=== PATIENT | female | born 1985 | race Caucasian/White ===

== ENCOUNTER 2019-11-13 13:31 | Emergency (ER) | payer MEDICAID, OTHER ==
[~2019-11-13] VITALS: Ht 162.6 cm; Wt 57.0 kg
[2019-11-13] MEDS ORDERED: cyclobenzaprine 10mg tablet PO ONE (14:30)
[2019-11-13] MEDS ORDERED: normal saline 1000ml 1,000 ML IV ONE (14:30)
[2019-11-13] MEDS ORDERED: ketorolac tromethamine 15mg/ml inj. IV ONE (14:40)
[2019-11-13] MEDS: morphine 4 MG/ML inj SYRINge IV ONE ×2 (14:49→14:52)
[2019-11-13] MEDS ORDERED: ondansetron/PF 4mg/2ml inj IV ONE (15:20)
[2019-11-13] MEDS ORDERED: morphine 4 MG/ML inj SYRINge IV ONE (15:20)
[2019-11-13 15:23] LABS: BASOPHILS # (AUTO) 0.1 X10'3 (0-0.2); BASOPHILS % (AUTO) 1.1 % (0-1); EOSINOPHILS # (AUTO) 0.1 X10'3 (0-0.9); HEMATOCRIT 35.5 % (35.0-45.0); HEMOGLOBIN 11.5 g/dl (12.0-16.0); LYMPHOCYTES # (AUTO) 1.3 X10'3 (1.1-4.8); LYMPHOCYTES % (AUTO) 20.9 % (21-51); MEAN CORPUSCULAR HEMOGLOBIN 26.7 PG (27.0-31.0); MEAN CORPUSCULAR HGB CONC 32.5 g/dL (33.0-36.5); MEAN CORPUSCULAR VOLUME 82.1 FL (78-98); MEAN PLATELET VOLUME 7.5 FL (7.4-10.4); MONOCYTES # (AUTO) 0.8 X10'3 (0-0.9); MONOCYTES % (AUTO) 13.3 % (2-12); NEUTROPHILS % (AUTO) 63.7 % (42-75); PLATELET COUNT 253 X10'3 (140-440); RED BLOOD COUNT 4.33 X10'6 (4.20-5.60); RED CELL DISTRIBUTION WIDTH 16.2 % (11.5-14.5); WHITE BLOOD COUNT 6.3 X10'3 (4.5-11.0)
[2019-11-13 15:30] VITALS: BP 110/68
[2019-11-13 15:46] LABS: ALANINE AMINOTRANSFERASE 19 U/L (12-78); ALBUMIN 2.8 G/DL (3.4-5.0); ALBUMIN/GLOBULIN RATIO 0.8 (1.1-1.5); ALKALINE PHOSPHATASE 68 IU/L (46-116); ANION GAP 8 (8-16); ASPARTATE AMINO TRANSFERASE 16 U/L (10-37); BILIRUBIN,TOTAL 0.2 MG/DL (0.1-1.0); BLOOD UREA NITROGEN 6 MG/DL (7-18); BUN/CREATININE RATIO 10.7 (6.6-38.0); CALCIUM 7.7 MG/DL (8.5-10.1); CHLORIDE 107 MMOL/L (99-107); CREATININE 0.56 MG/DL (0.40-0.90); GLUCOSE 114 MG/DL (70-104); POTASSIUM 3.6 MMOL/L (3.5-5.1); SODIUM 138 MMOL/L (135-145); TOTAL CARBON DIOXIDE 23.2 MMOL/L (24-32); TOTAL PROTEIN 6.2 G/DL (6.4-8.2); eGFR > 90 ML/MIN
[2019-11-13] MEDS ORDERED: CYCL-1 PO (15:50)
== END 2019-11-13 17:29 | disposition home or self-care (01) ==
LOC: ER 13:32
DX: R68.84 Jaw pain (principal); R11.0 Nausea; F17.200 Nicotine dependence, unspecified, uncomplicated; F15.90 Other stimulant use, unspecified, uncomplicated; Z79.899 Other long term (current) drug therapy
CPT/HCPCS: 36415; 71045; 80053; 83735; 83880; 85025; 93005; 96374; 96375; 99285; J1885; J2270; J2405; J7030

== ENCOUNTER 2020-05-02 09:33 | Emergency (ER) | payer SELFPAY ==
[~2020-05-02] VITALS: Ht 152.4 cm; Wt 60.0 kg
[~2020-05-02 09:33] MED LIST: CYCL-1 PO
[2020-05-02 09:35] VITALS: BP 98/68
--- NOTE | 2020-05-02 09:49 | NUR ---
WENT TO CALL PT INFORMED BY SCREENER THAT PT GOT IN CAR AND LEFT
== END 2020-05-02 10:10 | disposition left against medical advice (07) ==
LOC: ER 09:34
DX: R21 Rash and other nonspecific skin eruption (principal); Z53.21 Procedure and treatment not carried out due to patient leaving prior to being seen by health care provider

== ENCOUNTER 2020-05-10 23:38 | Emergency (ER) | payer SELFPAY ==
[~2020-05-10] VITALS: Ht 152.4 cm; Wt 60.0 kg
[2020-05-11] MEDS ORDERED: methylPREDNISolone sod succ 125mg/2ml vial IV ONE (00:10)
[2020-05-11] MEDS ORDERED: ipratropium/albuterol 3ml nebule NEB ONE (00:10)
--- NOTE | 2020-05-11 00:41 | NUR ---
DR BETANCOURT AT BEDSIDE. KAUR RECEIVED FOR BENEDRYL 50 MG PO X1 NOW.
[2020-05-11] MEDS ORDERED: diphenhydrAMINE 25mg capsule PO ONE (00:45)
[2020-05-11] MEDS ORDERED: HYDR-3686 PO (01:05)
[2020-05-11] MEDS ORDERED: fluconazole 150mg tablet PO ONE (01:05)
[2020-05-11 01:20] VITALS: BP 115/82
== END 2020-05-11 01:21 | disposition home or self-care (01) ==
LOC: ER 23:38
DX: L50.9 Urticaria, unspecified (principal); B37.9 Candidiasis, unspecified; R21 Rash and other nonspecific skin eruption; J02.9 Acute pharyngitis, unspecified; F15.90 Other stimulant use, unspecified, uncomplicated; Z88.0 Allergy status to penicillin; Z79.899 Other long term (current) drug therapy
CPT/HCPCS: 99283; Q0163

== ENCOUNTER 2020-12-25 08:26 | Emergency (ER) | payer SELFPAY ==
--- NOTE | 2020-12-25 09:10 | NUR ---
Registration stated that patient left ER lobby to go to [facility].
== END 2020-12-25 09:11 | disposition left against medical advice (07) ==
LOC: ER 08:28
DX: O26.90 Pregnancy related conditions, unspecified, unspecified trimester (principal); Z3A.00 Weeks of gestation of pregnancy not specified; Z53.21 Procedure and treatment not carried out due to patient leaving prior to being seen by health care provider

== ENCOUNTER 2021-04-15 19:19 | Emergency (ER) | payer MEDICAID ==
[~2021-04-15] VITALS: Ht 152.4 cm; Wt 140.0 kg
[2021-04-15] MEDS ORDERED: TETanus/Pertussis (Acell)/Diphther VAC/PF (Tdap-Adult) 0.5ml syringe IMVAC ONE (19:30)
--- NOTE | 2021-04-15 20:18 | NUR ---
TALKBACK HOST ATTEMPTED TO CLEAN WOUNDS UP WITH LUBE, WIPES, WASHCLOTHS AND WATER BUT PATIENT PREFERS TO DO IT HERSELF.
[2021-04-15 20:58] LABS: BASOPHILS # (AUTO) 0.1 X10'3 (0-0.2); BASOPHILS % (AUTO) 0.7 % (0-1); EOSINOPHILS # (AUTO) 0.1 X10'3 (0-0.9); EOSINOPHILS % (AUTO) 0.6 % (0-6); HEMATOCRIT 43.4 % (35.0-45.0); HEMOGLOBIN 14.4 g/dl (12.0-16.0); LYMPHOCYTES # (AUTO) 1.4 X10'3 (1.1-4.8); LYMPHOCYTES % (AUTO) 15.8 % (21-51); MEAN CORPUSCULAR HEMOGLOBIN 30.1 PG (27.0-31.0); MEAN CORPUSCULAR HGB CONC 33.1 g/dL (33.0-36.5); MEAN PLATELET VOLUME 7.5 FL (7.4-10.4); MONOCYTES # (AUTO) 0.8 X10'3 (0-0.9); MONOCYTES % (AUTO) 8.5 % (2-12); NEUTROPHILS # (AUTO) 6.6 X10'3 (1.8-7.7); NEUTROPHILS % (AUTO) 74.4 % (42-75); PLATELET COUNT 391 X10'3 (140-440); RED BLOOD COUNT 4.78 X10'6 (4.20-5.60); RED CELL DISTRIBUTION WIDTH 15.1 % (11.5-14.5); WHITE BLOOD COUNT 8.9 X10'3 (4.5-11.0)
--- NOTE | 2021-04-15 21:03 | NUR ---
helped patient to restroom, patient was able to provide urine for ua, patient changed into green scrubs. back back in stretch on hallway 16, blankets provided, patient resting.
[2021-04-15 21:05] LABS: ALANINE AMINOTRANSFERASE 19 U/L (12-78); ALBUMIN 4.3 G/DL (3.4-5.0); ALBUMIN/GLOBULIN RATIO 1.1 (1.1-1.5); ALKALINE PHOSPHATASE 94 IU/L (46-116); ANION GAP 9 (8-16); ASPARTATE AMINO TRANSFERASE 18 U/L (10-37); BILIRUBIN,TOTAL 0.8 MG/DL (0.1-1.0); BLOOD UREA NITROGEN 11 MG/DL (7-18); BUN/CREATININE RATIO 10.9 (6.6-38.0); CALCIUM 8.8 MG/DL (8.5-10.1); CHLORIDE 103 MMOL/L (99-107); CREATININE 1.01 MG/DL (0.40-0.90); ETHANOL < 0.010 GM/DL (0.0-0.010); GLUCOSE 96 MG/DL (70-104); POTASSIUM 3.8 MMOL/L (3.5-5.1); SODIUM 139 MMOL/L (135-145); TOTAL CARBON DIOXIDE 26.7 MMOL/L (24-32); TOTAL PROTEIN 8.3 G/DL (6.4-8.2); eGFR 62 ML/MIN
[2021-04-15 21:21] LABS: URINE HCG NEGATIVE (NEG)
[2021-04-15 21:32] LABS: URINE AMPHETAMINE SCREEN POSITIVE (Neg); URINE BARBITUATE SCREEN NEGATIVE (Neg); URINE BENZODIAZEPINES SCREEN NEGATIVE (Neg); URINE CANNABINOID SCREEN NEGATIVE (Neg); URINE COCAINE SCREEN NEGATIVE (Neg); URINE METHADONE SCREEN NEGATIVE (Neg); URINE OPIATE SCREEN NEGATIVE (Neg); URINE PHENCYCLIDINE SCREEN NEGATIVE (Neg)
--- NOTE | 2021-04-15 23:24 | NUR ---
PACKET FAXED TO [facility]
--- NOTE | 2021-04-16 00:16 | NUR ---
patient asleep at this time. resting comfortably.
--- NOTE | 2021-04-16 07:00 | NUR ---
Pt moved from ER main to overflow bed 21.
[2021-04-16 08:00] VITALS: BP 90/58
--- NOTE | 2021-04-16 09:00 | NUR ---
Pt ate breakfast, pt denies SI. [facility] evaluated pt.
[2021-04-16] MEDS ORDERED: NO HOME MEDS (09:39)
--- NOTE | 2021-04-16 09:49 | NUR ---
[facility] is not upholding the 5150 and pt will be discharged.
--- NOTE | 2021-04-16 11:45 | NUR ---
Pt has discharge orders, called [employer] for a ride home.
--- NOTE | 2021-04-16 11:47 | NUR ---
[employer] will be here in around 35 minutes.
== END 2021-04-16 13:40 | disposition home or self-care (01) ==
LOC: ER 19:19
DX: S21.119A Laceration without foreign body of unspecified front wall of thorax without penetration into thoracic cavity, initial encounter (principal); S50.812A Abrasion of left forearm, initial encounter; R45.851 Suicidal ideations; F15.90 Other stimulant use, unspecified, uncomplicated; Z88.0 Allergy status to penicillin; Z79.899 Other long term (current) drug therapy; Z20.3 Contact with and (suspected) exposure to rabies; X58.XXXA Exposure to other specified factors, initial encounter; Y93.89 Activity, other specified; Y92.89 Other specified places as the place of occurrence of the external cause; Y99.8 Other external cause status
CPT/HCPCS: 36415; 80053; 80305; 80320; 81025; 85025; 90471; 90715; 99285

== ENCOUNTER 2021-11-15 06:49 | Emergency (ER) | payer SELFPAY ==
[~2021-11-15] VITALS: Ht 152.4 cm; Wt 59.1 kg
[~2021-11-15 06:49] MED LIST changes: -CYCL-1 PO; +NO HOME MEDS
[2021-11-15] MEDS ORDERED: normal saline 1000ML IV soln IVB ONE ×2 (07:05→07:10)
[2021-11-15] MEDS ORDERED: ondansetron/PF 4mg/2ml inj IV ONE ×2 (07:05→07:10)
--- NOTE | 2021-11-15 07:27 | NUR ---
4 IV attempts-3 by 2 RNs, and 1 by Bus Operator. MD notified.
[2021-11-15] MEDS ORDERED: ondansetron 4mg rapidly disintigrating tab PO ONE (07:30)
[2021-11-15 07:40] LABS: BASOPHILS % (AUTO) 0.2 % (0-1); EOSINOPHILS # (AUTO) 0.1 X10'3 (0-0.9); MONOCYTES # (AUTO) 0.8 X10'3 (0-0.9); PLATELET COUNT 263 X10'3 (140-440); RED CELL DISTRIBUTION WIDTH 14.4 % (11.5-14.5)
[2021-11-15 07:42] LABS: HEMATOCRIT 43.5 % (35.0-45.0); HEMOGLOBIN 14.5 g/dl (12.0-16.0); LYMPHOCYTES # (AUTO) 0.8 X10'3 (1.1-4.8); LYMPHOCYTES % (AUTO) 5.5 % (21-51); MEAN CORPUSCULAR HEMOGLOBIN 30.4 PG (27.0-31.0); MEAN CORPUSCULAR HGB CONC 33.4 g/dL (33.0-36.5); MEAN CORPUSCULAR VOLUME 91.2 FL (78-98); MONOCYTES % (AUTO) 5.6 % (2-12); NEUTROPHILS # (AUTO) 12.8 X10'3 (1.8-7.7); NEUTROPHILS % (AUTO) 87.7 % (42-75); RED BLOOD COUNT 4.77 X10'6 (4.20-5.60); WHITE BLOOD COUNT 14.6 X10'3 (4.5-11.0)
[2021-11-15 07:49] LABS: HCG SERUM QL NEGATIVE
[2021-11-15 07:58] LABS: ALANINE AMINOTRANSFERASE 40 U/L (12-78); ALBUMIN 3.6 G/DL (3.4-5.0); ALBUMIN/GLOBULIN RATIO 0.9 (1.1-1.5); ALKALINE PHOSPHATASE 87 IU/L (46-116); ANION GAP 10 (8-16); ASPARTATE AMINO TRANSFERASE 26 U/L (10-37); BILIRUBIN,TOTAL 0.7 MG/DL (0.1-1.0); BLOOD UREA NITROGEN 17 MG/DL (7-18); BUN/CREATININE RATIO 24.3 (6.6-38.0); CALCIUM 8.6 MG/DL (8.5-10.1); CHLORIDE 106 MMOL/L (99-107); ETHANOL < 0.010 GM/DL (0.0-0.010); GLUCOSE 118 MG/DL (70-104); LIPASE 71 U/L (73-393); POTASSIUM 3.9 MMOL/L (3.5-5.1); SODIUM 142 MMOL/L (135-145); TOTAL PROTEIN 7.5 G/DL (6.4-8.2); eGFR > 90 ML/MIN
--- NOTE | 2021-11-15 08:12 | NUR ---
Clarified order with MD before starting 2nd liter- pt to receive only 1 liter NS.
[2021-11-15 10:28] LABS: CLARITY,URINE CLOUDY (Clear); COLOR,URINE YELLOW (Yellow); GLUCOSE, URINE NEGATIVE (Neg); KETONES,URINE NEGATIVE (Neg); LEUKOCYTE ESTERASE ,URINE NEGATIVE (Neg); NITRITES, URINE NEGATIVE (Neg); OCCULT BLOOD,URINE NEGATIVE (Neg); PH,URINE 6.5 (4.8-8.0); PROTEIN,URINE NEGATIVE (Neg); UROBILINOGEN,URINE 0.2 E.U/dL (0.2-1.0)
[2021-11-15 10:45] LABS: URINE AMPHETAMINE SCREEN POSITIVE (Neg); URINE BARBITUATE SCREEN NEGATIVE (Neg); URINE BENZODIAZEPINES SCREEN NEGATIVE (Neg); URINE CANNABINOID SCREEN NEGATIVE (Neg); URINE COCAINE SCREEN NEGATIVE (Neg); URINE METHADONE SCREEN NEGATIVE (Neg); URINE OPIATE SCREEN NEGATIVE (Neg); URINE PHENCYCLIDINE SCREEN NEGATIVE (Neg)
[2021-11-15 10:50] LABS: UA COLLECTION TYPE NON-SPECIFIED
[2021-11-15 10:52] LABS: RBC,URINE NONE SEEN /HPF (0-2)
[2021-11-15 10:54] LABS: AMORPHOUS PHOSPHATES 1+; BACTERIA,URINE FEW /HPF (Neg); SQUAMOUS EPITHELIAL CELL,UR MODERATE /LPF (FEW)
[2021-11-15] MEDS ORDERED: METR-159 PO (11:08)
[2021-11-15] MEDS ORDERED: CIPR-259 PO (11:08)
[2021-11-15] MEDS ORDERED: GOLYS PO (11:11)
--- NOTE | 2021-11-15 11:17 | NUR ---
Pt states she still feels nauseated. BP 96/58, HR 79
--- NOTE | 2021-11-15 11:17 | NUR ---
see above-MD notified.
[2021-11-15 11:24] VITALS: BP 96/58
== END 2021-11-15 11:27 | disposition home or self-care (01) ==
LOC: ER 06:49
DX: A08.39 Other viral enteritis (principal); F15.10 Other stimulant abuse, uncomplicated; Z59.00 Homelessness unspecified; Z88.0 Allergy status to penicillin; Z79.899 Other long term (current) drug therapy
CPT/HCPCS: 36415; 71045; 74176; 76700; 80053; 80305; 80320; 81001; 83605; 83690; 84484; 84703; 85025; 87088; 96374; 99285; J2405; J7030

== ENCOUNTER 2022-02-16 01:03 | Emergency (ER) | payer MEDICAID ==
[~2022-02-16] VITALS: Ht 152.4 cm; Wt 61.0 kg
[~2022-02-16 01:03] MED LIST changes: +GOLYS PO
[2022-02-16] MEDS ORDERED: ketorolac trometh. 30mg/ml inj. IM ONE (01:40)
[2022-02-16] MEDS ORDERED: oxyCODONE IR 5mg (immed. release) tablet PO ONE (02:40)
[2022-02-16] MEDS ORDERED: acetaminophen 325mg tablet PO ONE (02:40)
[2022-02-16] MEDS ORDERED: IBUP-1985 PO (03:19)
[2022-02-16 03:52] VITALS: BP 115/77
== END 2022-02-16 03:39 | disposition home or self-care (01) ==
LOC: ER 01:04
DX: M79.605 Pain in left leg (principal); F15.90 Other stimulant use, unspecified, uncomplicated; Z72.89 Other problems related to lifestyle; Z59.00 Homelessness unspecified; Z88.0 Allergy status to penicillin; Z79.899 Other long term (current) drug therapy
CPT/HCPCS: 29505; 73590; 73630; 96372; 99284; J1885

== ENCOUNTER → 2022-05-04 | Emergency (ER) | payer MEDICAID ==
[~2022-05-04] VITALS: Ht 152.4 cm; Wt 63.5 kg
[~2022-05-04] MED LIST changes: +IBUP-1985 PO
[2022-05-04 05:46] VITALS: BP 116/79
[2022-05-04 06:07] LABS: CLARITY,URINE CLOUDY (Clear); COLOR,URINE YELLOW (Yellow); GLUCOSE, URINE NEGATIVE (Neg); KETONES,URINE NEGATIVE (Neg); LEUKOCYTE ESTERASE ,URINE SMALL (Neg); NITRITES, URINE POSITIVE (Neg); OCCULT BLOOD,URINE LARGE (Neg); PH,URINE 6.5 (4.8-8.0); PROTEIN,URINE 100 mg/dl (Neg); UROBILINOGEN,URINE 0.2 E.U/dL (0.2-1.0)
[2022-05-04 06:13] LABS: URINE HCG NEGATIVE (NEG)
[2022-05-04 06:31] LABS: UA COLLECTION TYPE CLN CATCH MIDSTREAM
[2022-05-04 06:33] LABS: BACTERIA,URINE FEW /HPF (Neg); RBC,URINE 20-50 /HPF (0-2); SQUAMOUS EPITHELIAL CELL,UR FEW /LPF (FEW); WBC,URINE TNTC /HPF (0-4)
== END | disposition left against medical advice (07) ==
LOC: ER 05:43
DX: M25.559 Pain in unspecified hip (principal); Z53.21 Procedure and treatment not carried out due to patient leaving prior to being seen by health care provider
CPT/HCPCS: 81001; 81025; 87088

== ENCOUNTER 2023-01-17 19:14 | Emergency (ER) | payer MEDICAID ==
[~2023-01-17] VITALS: Ht 152.4 cm; Wt 63.6 kg
[2023-01-17 19:38] VITALS: BP 97/63
== END 2023-01-17 21:00 | disposition home or self-care (01) ==
LOC: ER 19:15
DX: J45.909 Unspecified asthma, uncomplicated; F17.200 Nicotine dependence, unspecified, uncomplicated; F15.20 Other stimulant dependence, uncomplicated; Z88.0 Allergy status to penicillin; Z59.00 Homelessness unspecified
CPT/HCPCS: 93005; 99283